=== PATIENT | male | born 1985 | race Caucasian/White ===

== ENCOUNTER 2017-09-11 17:58 | Emergency (ER) | payer MEDICARE, BC, MEDICAID ==
[~2017-09-11] VITALS: Ht 170.2 cm; Wt 88.0 kg
--- NOTE | 2017-09-11 18:03 | NUR ---
[id number] FOR NAUSEA AND VOMITING AFTER SMOKING MARIJUANA. DENIES PAIN. ASSISTED TO ED BED 08. PT APPEARS ANXIOUS. RR EVEN AND UNLABORED. DR. LEVY AT BEDSIDE FOR EVALUATION
[2017-09-11] MEDS ORDERED: ONDANSETRON HCL/PF 4 MG/2 ML VIAL ONE (18:12)
[2017-09-11 18:19] LABS: BASOPHILS # (AUTO) 0.1 /CMM (0.0-0.2); BASOPHILS % (AUTO) 0.7 % (0.0-2.0); EOSINOPHILS % (AUTO) 0.1 % (0.0-6.0); HEMATOCRIT 44 % (39-51); HEMOGLOBIN 14.6 g/dL (13.5-17.5); LYMPHOCYTES # (AUTO) 4.3 /CMM (0.8-4.8); MEAN CORPUSCULAR HEMOGLOBIN 29 PG (26.0-33.0); MEAN CORPUSCULAR HGB CONC 34 g/dl (31.0-36.0); MEAN CORPUSCULAR VOLUME 86 fL (80-96); MONOCYTES # (AUTO) 1.1 /CMM (0.1-1.30); MONOCYTES % (AUTO) 8.1 % (2.0-12.0); NEUTROPHILS # (AUTO) 8.1 /CMM (1.8-8.9); NEUTROPHILS % (AUTO) 59.1 % (43.0-81.0); PLATELET COUNT (AUTO) 264 /CMM (150-450); RED BLOOD CELL COUNT(AUTO) 5.06 MIL/uL (4.5-6.0); WHITE BLOOD COUNT (AUTO) 13.6 K/uL (4.3-11.0)
[2017-09-11 18:28] LABS: CALCIUM, SERUM 8.3 mg/dL (8.5-10.1); CARBON DIOXIDE 28 mmol/L (21-32); CHLORIDE 106 mmol/L (98-107); CREATININE 0.9 mg/dL (0.6-1.3); GLUCOSE 147 mg/dL (74-106); POTASSIUM 3.1 mmol/L (3.5-5.1); SODIUM SERUM 143 mmol/L (136-145); UREA NITROGEN, BLOOD 10 mg/dL (7-18)
[2017-09-11] MEDS ORDERED: IV NS 0.9% 1,000 ML BAG IV ONE (18:30)
[2017-09-11] MEDS ORDERED: ONDANSETRON HCL/PF 4 MG/2 ML VIAL IVP ONE (18:30)
[2017-09-11 18:34] LABS: ALANINE AMINOTRANSFERASE 40 U/L (12-78); ALBUMIN 3.8 g/dL (3.4-5.0); ALCOHOL, BLOOD < 3 mg/dL (0-0); ALKALINE PHOSPHATASE 87 U/L (46-116); ASPARTATE AMINOTRANSFERASE 20 U/L (15-37); BILIRUBIN,DIRECT 0.1 mg/dL (0.0-0.2); BILIRUBIN,TOTAL 0.4 mg/dL (0.2-1.0); TOTAL PROTEIN, SERUM 6.9 g/dL (6.4-8.2)
[2017-09-11 18:35] LABS: ACETAMINOPHEN 0 ug/ml (10-30); SALICYLATE 2.7 mg/dL (2.8-20.0)
[2017-09-11] MEDS ORDERED: POTASSIUM CHLORIDE 20 MEQ TAB.PRT.SR PO ONE ×2 (19:00→19:14)
--- NOTE | 2017-09-11 19:06 | NUR ---
RECEIVED REPORT FROM IBRAHIMA MEYER. PT AOX3. APPEARS COMFORTABLE.
--- NOTE | 2017-09-11 19:30 | NUR ---
IV removed. Catheter intact and site benign. Pressure and 4x4 applied to site. No bleeding noted. Patient discharged to home in stable condition. Written and verbal after care instructions given. Patient verbalizes understanding of instruction. ambulatory with a steady gait. instructed not to drive.pt verbalize understanding.
[2017-09-11 19:32] VITALS: BP 138/87
== END 2017-09-11 19:32 | disposition home or self-care (01) ==
LOC: ER 17:59
DX: E87.6 Hypokalemia (principal); E86.0 Dehydration; F12.10 Cannabis abuse, uncomplicated; F31.9 Bipolar disorder, unspecified; F17.200 Nicotine dependence, unspecified, uncomplicated; F10.10 Alcohol abuse, uncomplicated
CPT/HCPCS: 36415; 80048; 80076; 80329; 85025; 96361; 96374; 99284; A4606; G0480 ×2; J2405; J7030; Z7610

== ENCOUNTER 2018-06-15 23:51 | Emergency (ER) | payer MEDICARE, BC, MEDICAID ==
[~2018-06-15] VITALS: Ht 170.2 cm; Wt 81.6 kg
[2018-06-16 00:06] VITALS: BP 119/81
== END 2018-06-16 00:36 | disposition home or self-care (01) ==
LOC: ER 23:53
DX: J45.909 Unspecified asthma, uncomplicated (principal); F10.10 Alcohol abuse, uncomplicated; F17.200 Nicotine dependence, unspecified, uncomplicated; Y90.9 Presence of alcohol in blood, level not specified
CPT/HCPCS: 99283; A4606; Z7610

== ENCOUNTER 2021-05-12 16:13 | Emergency (ER) | payer MEDICARE, BC ==
[~2021-05-12] VITALS: Ht 170.2 cm; Wt 93.0 kg
[2021-05-12 16:56] LABS: BASOPHILS % (AUTO) 0.4 % (0.0-2.0); HEMATOCRIT 42 % (39-51); HEMOGLOBIN 14.1 g/dL (13.5-17.5); LYMPHOCYTES # (AUTO) 1.2 K/uL (0.8-4.8); LYMPHOCYTES % (AUTO) 13.7 % (20.0-44.0); MEAN CORPUSCULAR HGB CONC 33 g/dl (31.0-36.0); MEAN CORPUSCULAR VOLUME 84 fL (80-96); MONOCYTES # (AUTO) 0.9 K/uL (0.1-1.30); NEUTROPHILS # (AUTO) 6.5 K/uL (1.8-8.9); NEUTROPHILS % (AUTO) 75.9 % (43.0-81.0); PLATELET COUNT (AUTO) 200 K/uL (150-450); RED BLOOD CELL COUNT(AUTO) 5.06 MIL/uL (4.5-6.0); WHITE BLOOD COUNT (AUTO) 8.6 K/uL (4.3-11.0)
[2021-05-12 17:02] LABS: CALCIUM, SERUM 8.3 mg/dL (8.5-10.1); CARBON DIOXIDE 25 mmol/L (21-32); CHLORIDE 104 mmol/L (98-107); CREATININE 0.8 mg/dL (0.6-1.3); GLUCOSE 122 mg/dL (74-106); SODIUM SERUM 139 mmol/L (136-145); UREA NITROGEN, BLOOD 17 mg/dL (7-18)
[2021-05-12 17:08] LABS: ACETAMINOPHEN < 0 ug/ml (10-30); ALANINE AMINOTRANSFERASE 47 U/L (12-78); ALBUMIN 3.6 g/dL (3.4-5.0); ALCOHOL, BLOOD < 3 mg/dL (0-0); ALKALINE PHOSPHATASE 88 U/L (46-116); ASPARTATE AMINOTRANSFERASE 43 U/L (15-37); BILIRUBIN,DIRECT 0.1 mg/dL (0.0-0.2); BILIRUBIN,TOTAL 0.4 mg/dL (0.2-1.0); TOTAL PROTEIN, SERUM 6.6 g/dL (6.4-8.2)
--- NOTE | 2021-05-12 17:08 | NUR ---
ISABELA AND [employer] TO ER BED 12. SLEEPING BUT EASILY ARROUSABLE. NOT IN RESP DISTRESS. BROUTH IN BECAUSE PT WALKED IN TO [employer] STATING "I WANT TO KILL MY SELF" AND PT STARTING TO TAKE OFF HIS CLOTHES. UPON ASSESSING, PT DENIED ANY SUICIDAL NOR HOMICIDAL IDEATION. WHEN ASKED TO CONFIRM IF HE VERBALIZED THAT HE WANTS TO KILL HIMSELF, HE REPLIED NO BUT HE SAID " I WANT TO BE REMEMEBRED". PROVIDER WAS AT THE BEDSIDE FOR EVAL. PT IS ON MONITOR.
[2021-05-12] MEDS ORDERED: LORAZEPAM INJ 2 MG/ML VIAL IM ONE (17:30)
[2021-05-12] MEDS ORDERED: OLANZAPINE 5 MG TABLET PO ONE (17:30)
[2021-05-12] MEDS ORDERED: POTASSIUM CHLORIDE 20 MEQ TAB.PRT.SR PO ONE ×2 (17:30→17:43)
--- NOTE | 2021-05-12 17:35 | NUR ---
PT ALL OF A SUDDEN STARTED GETTING AGITATED AND STARTED YELLING FOR NOW REASON. PT IS YELLING. "I DIDNT DO IT"
[2021-05-12] MEDS ORDERED: OLANZAPINE 5 MG TABLET ONE (17:43)
[2021-05-12] MEDS ORDERED: LORAZEPAM INJ 2 MG/ML VIAL ONE (17:44)
[2021-05-12] MEDS ORDERED: OLANZAPINE 10 MG VIAL IM ONE ×2 (17:45→18:00)
--- NOTE | 2021-05-12 17:48 | NUR ---
ZYPREXA 5MG PO CHANGED TO ZYRPREXA 10MG IM D/T PT IS AGITATED AND UNABLE TO GIVE MEDS POS.
[2021-05-12] MEDS ORDERED: IV NS 0.9% 1,000 ML BAG IV ONE (18:30)
[2021-05-12] MEDS ORDERED: LORAZEPAM INJ 2 MG/ML VIAL IV ONE (18:30)
--- NOTE | 2021-05-12 18:30 | NUR ---
ATIVIAN 1MG IV CANCELLED BY PROVIDER. PT ALREADY RECEIVED ATIVAN 1MG IM.
--- NOTE | 2021-05-12 19:20 | NUR ---
PT IS ALREADY VLAD JESSICA SLEEPING. ATIVAN 1MG IV WAS NOT GIVEN SINCE PT IS ALREADY SEDATED.
--- NOTE | 2021-05-12 19:21 | NUR ---
PER AVNI HORAN, GIVE IV NS IF HR IS BEYOND 100. PT CURRENT HR IS 93 BPM
--- NOTE | 2021-05-12 19:21 | NUR ---
PT'S NS WAS NOT GIVEN D/T PT'S HR WAS BELOW 100 BPM. PA AWARE
[2021-05-12] MEDS ORDERED: LIDOCAINE 2% JEL UROJET 10 ML MM ONE (19:41)
--- NOTE | 2021-05-12 20:11 | NUR ---
URINE COLLECTEC VIA IN AND OUT PER PROVIDER ORDER. STRICT CTERILE TECHNIQUE OBSERVED DURING THE PROCEDURE.
[2021-05-13] MEDS ORDERED: POTASSIUM CHLORIDE 20 MEQ TAB.PRT.SR PO ONE (00:03)
[2021-05-13 03:06] LABS: BILIRUBIN,URINE Negative (NEGATIVE); COLOR,URINE YELLOW (YELLOW); LEUKOCYTE ESTERASE ,URINE Negative (NEGATIVE); NITRITE, URINE Negative (NEGATIVE); PROTEIN,URINE Negative (NEGATIVE); UGLUCOSE Negative (NEGATIVE); UROBILINOGEN,URINE 0.2 EU/dL (0.2)
--- NOTE | 2021-05-13 05:12 | NUR ---
PT AWAKE, AAOX4. REQUESTING TO LEAVE. DENIES SI AND HI. ER AWARE.
--- NOTE | 2021-05-13 05:12 | NUR ---
Patient discharged to home in stable condition. Written and verbal after care instructions given. Patient verbalizes understanding of instruction. Pt ambulated out of ED. VSS.
[2021-05-13 05:13] VITALS: BP 116/76
== END 2021-05-13 05:13 | disposition home or self-care (01) ==
LOC: ER 17:17
DX: F19.10 Other psychoactive substance abuse, uncomplicated (principal); R45.1 Restlessness and agitation; E87.6 Hypokalemia; F20.9 Schizophrenia, unspecified; F31.9 Bipolar disorder, unspecified; J45.909 Unspecified asthma, uncomplicated; F90.9 Attention-deficit hyperactivity disorder, unspecified type
CPT/HCPCS: 36415; 80048; 80076; 80143; 80307; 80320; 81003; 85025; 96372 ×2; 99285; J2060; J3490 ×2; G0480

== ENCOUNTER 2021-06-02 10:20 | Inpatient (IN) | payer MEDICARE, BC, MEDICAID ==
[~2021-06-02] VITALS: Ht 170.2 cm; Wt 85.3 kg
--- NOTE | 2021-06-02 10:51 | NUR ---
[address] C/O "HEAT STROKE" AND UNABLE TO TAKE "PSYCH MEDS" STABLE VITAL BEHAVIORAL MEDICAL DIRECTOR. BG 120. THE PATIENT IS ALERT AND ORIENTED X1. RESPIRATION REGULAR AND UNLABORED. ATTACHED TO THE MONITOR.
[2021-06-02] MEDS ORDERED: IV NS 0.9% 1,000 ML BAG IV ONE ×2 (11:30→12:30)
[2021-06-02 11:34] LABS: BASOPHILS % (AUTO) 0.3 % (0.0-2.0); HEMATOCRIT 48 % (39-51); HEMOGLOBIN 16.1 g/dL (13.5-17.5); LYMPHOCYTES # (AUTO) 2.1 K/uL (0.8-4.8); LYMPHOCYTES % (AUTO) 14.1 % (20.0-44.0); MEAN CORPUSCULAR HGB CONC 34 g/dl (31.0-36.0); MEAN CORPUSCULAR VOLUME 82 fL (80-96); MONOCYTES # (AUTO) 1.7 K/uL (0.1-1.30); MONOCYTES % (AUTO) 11.4 % (2.0-12.0); NEUTROPHILS # (AUTO) 11.1 K/uL (1.8-8.9); NEUTROPHILS % (AUTO) 74.2 % (43.0-81.0); PLATELET COUNT (AUTO) 272 K/uL (150-450)
--- NOTE | 2021-06-02 11:40 | NUR ---
URINE COLLECTED AND SENT TO THE LAB
[2021-06-02 11:48] LABS: BILIRUBIN,URINE SMALL (NEGATIVE); COLOR,URINE YELLOW (YELLOW); LEUKOCYTE ESTERASE ,URINE Negative (NEGATIVE); NITRITE, URINE Negative (NEGATIVE); PROTEIN,URINE Trace mg/dl (NEGATIVE); UGLUCOSE Negative (NEGATIVE); UROBILINOGEN,URINE 0.2 EU/dL (0.2)
[2021-06-02 11:48] LABS: CALCIUM, SERUM 8.9 mg/dL (8.5-10.1); CARBON DIOXIDE 21 mmol/L (21-32); CHLORIDE 91 mmol/L (98-107); CREATININE 1.9 mg/dL (0.6-1.3); GLUCOSE 101 mg/dL (74-106); POTASSIUM 3.8 mmol/L (3.5-5.1); SODIUM SERUM 129 mmol/L (136-145); UREA NITROGEN, BLOOD 51 mg/dL (7-18)
[2021-06-02 12:00] LABS: ALANINE AMINOTRANSFERASE 84 U/L (12-78); ALBUMIN 4.4 g/dL (3.4-5.0); ALCOHOL, BLOOD < 3 mg/dL (0-0); ALKALINE PHOSPHATASE 111 U/L (46-116); ASPARTATE AMINOTRANSFERASE 245 U/L (15-37); BILIRUBIN,DIRECT 0.4 mg/dL (0.0-0.2); BILIRUBIN,TOTAL 1.7 mg/dL (0.2-1.0); TOTAL PROTEIN, SERUM 8.2 g/dL (6.4-8.2)
[2021-06-02 12:05] LABS: ACETAMINOPHEN 0 ug/ml (10-30)
[2021-06-02 12:28] LABS: CREATINE KINASE, TOTAL 19039 U/L (39-308)
[2021-06-02] MEDS ORDERED: ALBU18HF2 IH (12:33)
[2021-06-02] MEDS ORDERED: TRAZ-257 PO (12:33)
[2021-06-02] MEDS ORDERED: HYDR-3972 MT (12:33)
[2021-06-02] MEDS ORDERED: QUET200T PO (12:33)
[2021-06-02] MEDS ORDERED: DEXT30TA10 PO (12:33)
--- NOTE | 2021-06-02 13:03 | NUR ---
MOVE SHEET SUBMITTED.
[2021-06-02 13:48] LABS: BACTERIA,URINE 4+ /HPF (None Seen)
[2021-06-02 13:49] LABS: URIC ACID CRYSTALS,URINE Many /HPF (None Seen)
[2021-06-02 13:50] LABS: HYALINE CASTS, URINE Rare /LPF (None Seen)
[2021-06-02] MEDS ORDERED: TRAZODONE 50 MG TABLET PO PRN (14:00)
[2021-06-02] MEDS ORDERED: Z GUARD REMEDY 2 OZ OINT TP PRN (14:00)
[2021-06-02] MEDS ORDERED: ONDANSETRON HCL/PF 4 MG/2 ML VIAL IVP PRN (14:00)
[2021-06-02] MEDS ORDERED: ACETAMINOPHEN 325 MG TABLET PO PRN (14:00)
[2021-06-02] MEDS ORDERED: ZOLPIDEM TARTRATE 5 MG TABLET PO PRN (14:00)
[2021-06-02] MEDS ORDERED: LORAZEPAM INJ 2 MG/ML VIAL IV PRN (14:00)
[2021-06-02] MEDS ORDERED: MAGNESIUM HYDROXIDE 30 ML UDC PO PRN (14:00)
[2021-06-02] MEDS ORDERED: MAG HYDROX/AL HYDROX/SIMETH 30 ML UDC PO PRN (14:00)
[2021-06-02] MEDS ORDERED: PANTOPRAZOLE 40 MG TABLET.DR PO ONE (16:32)
[2021-06-02] MEDS: PANTOPRAZOLE 40 MG TABLET.DR PO SCH (16:49)
[2021-06-02] MEDS ORDERED: QUETIAPINE FUMARATE 100 MG TABLET PO SCH (18:30)
--- NOTE | 2021-06-02 19:05 | NUR ---
rec'd report from rika Ball for carla
[2021-06-02] MEDS ORDERED: ALBUTEROL FS 2.5 MG/3 ML VIAL.NEB NEB PRN (21:30)
--- NOTE | 2021-06-02 21:35 | NUR ---
PT REFUSED ECHO. WILL TRY AGAIN ZEYNEP.
[2021-06-02] MEDS: IV NS 0.9% 1,000 ML IV PRN (23:00)
--- NOTE | 2021-06-02 23:03 | NUR ---
pt resting comfortably with eyes closed, easily arousable
--- NOTE | 2021-06-03 02:15 | NUR ---
Patient is resting comfortably in bed with eyes closed. Easily aroused. VSS
[2021-06-03 05:01] LABS: BASOPHILS % (AUTO) 0.4 % (0.0-2.0); EOSINOPHILS % (AUTO) 0.1 % (0.0-6.0); HEMATOCRIT 44 % (39-51); HEMOGLOBIN 14.6 g/dL (13.5-17.5); LYMPHOCYTES # (AUTO) 1.6 K/uL (0.8-4.8); MEAN CORPUSCULAR HGB CONC 33 g/dl (31.0-36.0); MEAN CORPUSCULAR VOLUME 84 fL (80-96); MONOCYTES # (AUTO) 0.9 K/uL (0.1-1.30); MONOCYTES % (AUTO) 14.9 % (2.0-12.0); NEUTROPHILS # (AUTO) 3.3 K/uL (1.8-8.9); NEUTROPHILS % (AUTO) 57.6 % (43.0-81.0); PLATELET COUNT (AUTO) 195 K/uL (150-450); RED BLOOD CELL COUNT(AUTO) 5.23 MIL/uL (4.5-6.0); WHITE BLOOD COUNT (AUTO) 5.7 K/uL (4.3-11.0)
[2021-06-03 05:16] LABS: CALCIUM, SERUM 8.2 mg/dL (8.5-10.1); CREATININE 0.9 mg/dL (0.6-1.3); MAGNESIUM 2.5 mg/dL (1.8-2.4); PHOSPHORUS 2.8 mg/dL (2.5-4.9); POTASSIUM 4.4 mmol/L (3.5-5.1)
[2021-06-03] MEDS: IV NS 0.9% 1,000 ML IV PRN ×2 (05:40→13:10)
--- NOTE | 2021-06-03 05:51 | NUR ---
pt resting with eyes closed. easily arousable
--- NOTE | 2021-06-03 07:05 | NUR ---
gave report to rika Ball for carla
[2021-06-03] MEDS: PANTOPRAZOLE 40 MG TABLET.DR PO SCH (07:30)
[2021-06-03] MEDS ORDERED: PANTOPRAZOLE 40 MG TABLET.DR PO ONE (08:34)
[2021-06-03 09:45] LABS: ALBUMIN 3.4 g/dL (3.4-5.0); BILIRUBIN,TOTAL 1.2 mg/dL (0.2-1.0); CALCIUM, SERUM 8.2 mg/dL (8.5-10.1); CREATININE 0.9 mg/dL (0.6-1.3); POTASSIUM 4.5 mmol/L (3.5-5.1); TOTAL PROTEIN, SERUM 6.5 g/dL (6.4-8.2)
[2021-06-03] MEDS ORDERED: LORAZEPAM INJ 2 MG/ML VIAL ONE (13:06)
--- NOTE | 2021-06-03 13:08 | NUR ---
ATIVAN 2 MG IV ONCE PER DIRECTOR OF BUSINESS OPERATIONS SEBLE. THE ORDER IS READ BACK, VERIFIED. NOTED AND CARRIED OUT.
[2021-06-03] MEDS ORDERED: LORAZEPAM INJ 2 MG/ML VIAL IV ONE (13:30)
--- NOTE | 2021-06-03 14:15 | NUR ---
ABIGAIL MULLINS [phone] (MOTHER)
[2021-06-03] MEDS: QUETIAPINE FUMARATE 100 MG TABLET PO SCH (17:51)
--- NOTE | 2021-06-03 17:56 | NUR ---
CALLED INDEPENDENT BEAUTY CONSULTANT EUNICE TORRESAL. SAID "WILL CALL BACK"
--- NOTE | 2021-06-03 18:17 | NUR ---
THE PATIENT ALERT AND ORIENTED X4. DENIES PAIN AT THIS TIME. IN ROOM AIR AND DENIES SOB. RESPIRATION REGULAR AND UNLABORED. VSS.
--- NOTE | 2021-06-03 18:37 | NUR ---
LASTING ROOM SUPERVISOR EUNICE WILL BE HERE TO EVALUATE THE PATIENT IN AN HOUR.
--- NOTE | 2021-06-03 19:46 | NUR ---
PT PLACED ON 7450 HOLD BY EUNICE EDOUARD @ 1328
[2021-06-03] MEDS ORDERED: OLANZAPINE 10 MG VIAL IM ONE ×2 (20:00→20:07)
--- NOTE | 2021-06-03 20:20 | NUR ---
MOTHER, ABIGAIL MULLINS, LEFT PHONE NUMBER [phone]
--- NOTE | 2021-06-03 21:04 | NUR ---
dr catalan update re patient. cont current plan of care. and ativan not to exceed 8mg daily
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
[2021-06-04] MEDS ORDERED: LORAZEPAM INJ 2 MG/ML VIAL ONE (01:31)
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
--- NOTE | 2021-06-04 01:37 | NUR ---
PT MEDICATED ORDERED.
--- NOTE | 2021-06-04 03:19 | NUR ---
PT REMAINS AWAKE, UNCOOPERATIVE, SCREAMING. ER MD AWARE WITH ORDERS RECEIVED. WILL MEDICATE PT.
[2021-06-04] MEDS ORDERED: diphenhydrAMINE HCL 50 MG/ML VIAL IV STA (03:30)
[2021-06-04] MEDS ORDERED: diphenhydrAMINE HCL 50 MG/ML VIAL ONE (03:31)
--- NOTE | 2021-06-04 03:32 | NUR ---
PT MEDICATE ORDERED.
[2021-06-04 04:43] LABS: BASOPHILS % (AUTO) 0.6 % (0.0-2.0); EOSINOPHILS % (AUTO) 0.1 % (0.0-6.0); HEMATOCRIT 39 % (39-51); LYMPHOCYTES # (AUTO) 1.6 K/uL (0.8-4.8); MEAN CORPUSCULAR HGB CONC 33 g/dl (31.0-36.0); MEAN CORPUSCULAR VOLUME 84 fL (80-96); MONOCYTES # (AUTO) 0.7 K/uL (0.1-1.30); MONOCYTES % (AUTO) 14.6 % (2.0-12.0); NEUTROPHILS # (AUTO) 2.5 K/uL (1.8-8.9); NEUTROPHILS % (AUTO) 51.7 % (43.0-81.0); PLATELET COUNT (AUTO) 166 K/uL (150-450); RED BLOOD CELL COUNT(AUTO) 4.64 MIL/uL (4.5-6.0); WHITE BLOOD COUNT (AUTO) 4.7 K/uL (4.3-11.0)
[2021-06-04 04:54] LABS: CALCIUM, SERUM 7.8 mg/dL (8.5-10.1); CREATININE 0.6 mg/dL (0.6-1.3); POTASSIUM 4.8 mmol/L (3.5-5.1)
--- NOTE | 2021-06-04 05:43 | NUR ---
PT ASLEEP, EASILY AROUSABLE, NO ACUTE DISTRESS NOTED, RESP EVEN AND UNLABORED. 1:1 SITTER AT BEDSIDE FOR PT SAFETY.
[2021-06-04] MEDS: PANTOPRAZOLE 40 MG TABLET.DR PO SCH (07:30)
--- NOTE | 2021-06-04 07:45 | NUR ---
THE PATIENT IS ALERT AND ORIENTED X3. DENIES PAIN. IN ROOM AIR AND DENIES SOB. RESPIRATION REGULAR AND UNLABORED. WILL CONTINUE TO MONITOR THE PATIENT.
[2021-06-04] MEDS ORDERED: PANTOPRAZOLE 40 MG TABLET.DR PO ONE (07:47)
--- NOTE | 2021-06-04 08:02 | NUR ---
THE PATIENT SLEEPING. RESPONSIVE TO VERBAL SLIMULI. RESPIRATION REGULAR AND UNLABORED. WILL CONTINUE TO MONITOR THE PATIENT.
--- NOTE | 2021-06-04 10:05 | NUR ---
"Compo Caster consult: business services sales representative consult requested for homeless. Patient is a 36-year-old, male. SW met with patient at his bedside in the emergency department. Patient was alert and oriented x4. Patient presented irritable and anxious. Per chart, patient was brought in by ambulance on 06/02/21 with complaints of heat stroke and reported that he is unable to take his psychiatric medication. Patient is currently on a 5150 hold for danger to others. Patient will be admitted medically. Patient stated that he is currently homeless and stated that he has been homeless for the last few months. Patient reported that he has been living on the streets. Patient stated that his source of income is food stamps. SW assessed patient's history of substance use and patient denied use. Per toxicology report, patient is positive for amphetamine. SW assessed patient's history of mental illness. Patient reported history of Bipolar Disorder and ADHD. Patient reported that he was previously taking Seroquel, Trazodone, and Adderall. Patient stated that he is currently off his medications. Patient denied suicidal or homicidal ideation. JOCELIN offered the patient homeless and outpatient mental health resources. Patient accepted the resources and thanked SW. Patient signed the homeless waiver and SW filed waiver in the patient's chart. JOCELIN discussed discharge plans with the patient. Patient stated that he plans to stay with his mother, Norma, . Patient plans to use public transportation. PLAN: Patient will discharge to the street and plans to stay with family. No further SS intervention at this time, however, SW will remain available as needed. RESOURCES: Year-round shelters: [facility] [address] [place], [place] [id number] ; [facility] [address] [place] [address]; [facility] [id number] [facility] [address] [place] 4 | [facility] [place] Provider: [facility] Address: [address], [address] # of Beds: 48 Population Served: [facility] Provider: [facility] Address: [address] [facility], [address] # of Beds: 73 Population Served: [facility] 6 | [facility] Provider: [facility] Address: [address] [facility], [address] # of Beds: 63 Population Served: [facility] 3 | [facility] Provider: [facility] [place] [place] Address: [address] [facility], [address] # of Beds: 75 Population Served: [facility] 8 | [facility] Provider: [facility] [place] Address: [address] [facility], [address] # of Beds: 80 Population Served: [facility] 1 | [facility] Provider: [facility] [place] Address: [address] [place] [address], [address] # of Beds: 85 Population Served: [facility] 2 | [facility] Provider: [facility] Address: Confidential (please call for location) # of Beds: 52 Population Served: [facility] 4 | [facility] Provider: [facility] Address: [address] [facility], [address] # of Beds: 49 Population Served: [facility] Provider: [facility] Address: [address] [facility], [address] # of Beds: 27 Population Served: [facility] Hygiene: [facility] [address] [address] ; [facility] [address] [facility] ; [facility] [address]val[address] . Food Resources: [facility]- [address]. [place]; [facility] ([facility]) [address] [facility]; [facility] [address] [facility] [place]; [facility] [address]. Mental Health resources provided: [facility] [address] [place], [place] [address] ; [facility] [address] [facility] [address], [place], [place] [id number] ; [facility] [address] [facility] [place], [place] [id number] ; [facility] [address] [place], [place] [id number] Healthcare Clinics: [facility] [address] [facility], [address] [place]. [place] ; [facility] [address] [facility] [address] [place] [address]; [facility] [address] [facility] [place] [address] [phone]) [phone] Counseling--Outpatient [facility] [address] [facility], [address] [place], [place] [id number] (Specializes in in-depth psychotherapy for emotional distress: anxiety, depression, interpersonal conflicts, life transitions, childhood abuse) PSYCHIATRIC OUTPATIENT SERVICES [facility] Partial Hospitalization and Intensive Outpatient Program (Managed Care and [place] Only) [address] [facility] [id number] [facility] Partial Hospitalization and Outpatient Program [address] [place], [place] [id number] [facility] Partial Hospitalization and Outpatient Program [address] [facility] [place] [address] [facility] [address] [facility]. [address] [place], [place] [address] [facility] Partial Hospitalization and Outpatient Program [address] [place], [place] [phone] "
[2021-06-04] MEDS: GABAPENTIN 300 MG CAPSULE PO SCH (17:00)
[2021-06-04] MEDS: IV 1/2NS 1000 ML 1,000 ML IV PRN (18:01)
[2021-06-04] MEDS ORDERED: GABAPENTIN 300 MG CAPSULE ONE (18:11)
[2021-06-04] MEDS: QUETIAPINE FUMARATE 100 MG TABLET PO SCH (18:43)
--- NOTE | 2021-06-04 18:43 | NUR ---
THE PATIENT HAVING DINNER. DENIES PAIN. RESPIRATION REGULAR AND UNLABORED. WILL CONTINUE TO MONITOR THE PATIENT.
--- NOTE | 2021-06-04 19:05 | NUR ---
rec'd report from rika Ball for carla
--- NOTE | 2021-06-04 21:32 | NUR ---
pt sleeping, easily aroused.
--- NOTE | 2021-06-05 00:15 | NUR ---
Pt resting with eyes closed, easily arousable
--- NOTE | 2021-06-05 04:05 | NUR ---
pt resting comfortably, vss
[2021-06-05] MEDS: IV 1/2NS 1000 ML 1,000 ML IV PRN ×2 (05:00→20:20)
[2021-06-05 06:17] LABS: CALCIUM, SERUM 8.2 mg/dL (8.5-10.1); CREATININE 0.7 mg/dL (0.6-1.3); POTASSIUM 4.6 mmol/L (3.5-5.1)
--- NOTE | 2021-06-05 07:24 | NUR ---
ASSESSED PT ON BED ASLEEP EASILY AROUSABLE, AAOX3, NOT IN RESPIRATORY DISTRESS, V/S STABLE, KEPT RESTED AND COMFORTABLE. WILL CONTINUE TO MONITOR.
[2021-06-05] MEDS ORDERED: PANTOPRAZOLE 40 MG TABLET.DR PO ONE (07:40)
[2021-06-05] MEDS: PANTOPRAZOLE 40 MG TABLET.DR PO SCH (07:41)
[2021-06-05] MEDS ORDERED: GABAPENTIN 300 MG CAPSULE ONE ×3 (09:48→17:25)
[2021-06-05] MEDS: GABAPENTIN 300 MG CAPSULE PO SCH ×3 (09:49→17:32)
--- NOTE | 2021-06-05 11:07 | NUR ---
ITA DAWSON [phone]
--- NOTE | 2021-06-05 11:32 | NUR ---
BENNETT PRUETT DNP AT BEDSIDE TALKING TO PT. PT IS AWAKE. PROVIDER WITH A MEAL. REFUSED TO HAVE VITAL SIGN TAKEN.
--- NOTE | 2021-06-05 17:30 | NUR ---
PT PROVIDED WITH A MEAL.
[2021-06-05] MEDS: QUETIAPINE FUMARATE 100 MG TABLET PO SCH (17:32)
--- NOTE | 2021-06-05 19:05 | NUR ---
pt sleeping with eyes closed. easily arousable
--- NOTE | 2021-06-05 23:18 | NUR ---
pt vss, breathing evenly and unlabored.
--- NOTE | 2021-06-05 23:36 | NUR ---
PT IS IN BED SLEEPING ADN RESTIG COMFORTABLY. NAD NOTED. PT IS ARROUSABLE.
--- NOTE | 2021-06-06 03:33 | NUR ---
PT ASLEEP, EASILY AROUSABLE, NO ACUTE DISTRESS NOTED, RESP EVEN AND UNLABORED. 1:1 SITTER AT BEDSIDE FOR PT SAFETY. CALL LIGHT WITHIN REACH. WILL CONTINUE TO MONITOR.
[2021-06-06] MEDS: IV 1/2NS 1000 ML 1,000 ML IV PRN (03:45)
--- NOTE | 2021-06-06 04:29 | NUR ---
pt awake asking for food, needs tended to
--- NOTE | 2021-06-06 06:03 | NUR ---
pt sleeping, vss, easily arousable
--- NOTE | 2021-06-06 07:20 | NUR ---
ASSESSED PT ON BED ASLEEP EASILY AROUSABLE, NOT IN RESPIRATORY DISTRESS, V/S STABLE, KEPT RESTED AND COMFORTABLE. WILL CONTINUE TO MONITOR.
[2021-06-06] MEDS ORDERED: PANTOPRAZOLE 40 MG TABLET.DR PO ONE (07:27)
[2021-06-06] MEDS: PANTOPRAZOLE 40 MG TABLET.DR PO SCH (07:28)
[2021-06-06] MEDS ORDERED: GABAPENTIN 300 MG CAPSULE ONE (09:28)
[2021-06-06] MEDS: GABAPENTIN 300 MG CAPSULE PO SCH (09:30)
[2021-06-06 09:54] LABS: CREATININE 0.7 mg/dL (0.6-1.3); POTASSIUM 4.6 mmol/L (3.5-5.1)
--- NOTE | 2021-06-06 10:26 | NUR ---
AT BEDSIDE FOR EVAL.
[2021-06-06] MEDS ORDERED: QUET400T PO (11:01)
--- NOTE | 2021-06-06 11:16 | NUR ---
IV removed. Catheter intact and site benign. Pressure and 4x4 applied to site. No bleeding noted.
[2021-06-06 11:39] VITALS: BP 125/63
--- NOTE | 2021-06-06 11:39 | NUR ---
Patient given written and verbal discharge instructions. Patient verbalizes understanding of instructions. Patient is ambulatory with steady gait. Refuses offer of usp placement. Patient given list of available shelters in surrounding area.
== END 2021-06-06 11:30 | disposition home or self-care (01) | DRG 557 ==
LOC: ER 10:23 → TRANSITION 20:59
PROVIDERS: ADMIT Nurse Practitioner Acute Care; ATTEND Nurse Practitioner Acute Care
DX: M62.82 Rhabdomyolysis (principal); N17.0 Acute kidney failure with tubular necrosis; K72.00 Acute and subacute hepatic failure without coma; E87.1 Hypo-osmolality and hyponatremia; F05 Delirium due to known physiological condition; J45.909 Unspecified asthma, uncomplicated; I10 Essential (primary) hypertension; F90.9 Attention-deficit hyperactivity disorder, unspecified type; D72.829 Elevated white blood cell count, unspecified; F20.9 Schizophrenia, unspecified; Z59.0 Homelessness; E86.0 Dehydration; Z20.822 Contact with and (suspected) exposure to COVID-19; F19.10 Other psychoactive substance abuse, uncomplicated; F31.9 Bipolar disorder, unspecified; Z79.51 Long term (current) use of inhaled steroids; Z79.899 Other long term (current) drug therapy; R74.01 Elevation of levels of liver transaminase levels; E80.6 Other disorders of bilirubin metabolism; E66.9 Obesity, unspecified; Z68.29 Body mass index [BMI] 29.0-29.9, adult; F41.9 Anxiety disorder, unspecified
CPT/HCPCS: 36415; 71045-TC; 76700-TC; 76770-TC; 80048-TC; 80053-TC; 80076-TC; 81001; 82550-TC; 82553; 83735-TC; 84100-TC; 84484-TC; 85025-TC; 87081-TC; 87086-TC; C9803; G0378; G0480; J1200; J2060; J3490; J7030

== ENCOUNTER 2021-09-07 21:18 | Emergency (ER) | payer MEDICARE, BC, OTHER ==
[~2021-09-07] VITALS: Ht 170.2 cm; Wt 86.2 kg
[~2021-09-07 21:18] MED LIST: ALBU18HF2 IH; DEXT30TA10 PO; HYDR-3972 MT; QUET200T PO; QUET400T PO; TRAZ-257 PO
[2021-09-07 21:56] VITALS: BP 133/83
--- NOTE | 2021-09-07 22:03 | NUR ---
PT LEFT WITHOUT BEING SEEN BY DOCTOR. REFUSED TO SEE A PHYSICIAN.MD AWARE
== END 2021-09-07 22:05 | disposition left against medical advice (07) ==
LOC: ER 21:22
DX: Z53.21 Procedure and treatment not carried out due to patient leaving prior to being seen by health care provider (principal); Z76.0 Encounter for issue of repeat prescription; F20.9 Schizophrenia, unspecified; F31.9 Bipolar disorder, unspecified; F90.9 Attention-deficit hyperactivity disorder, unspecified type